=== PATIENT | female | born 1955 | race Caucasian/White ===

== ENCOUNTER 2016-06-13 07:30 | Inpatient (IN) | payer BC ==
[~2016-06-13] VITALS: Ht 162.6 cm; Wt 72.7 kg
[~2016-06-13 07:30] MED LIST: BENICAR HCT 40-1 TAB PO; CELEXA40 MG PO; FLEXERIL10 MG PO; MOBIC7.5 MG PO; NORCO 10/325 TA1 TA1 PO; NORCO 5/325 TAB1 TA1 PO; PROVENTIL HFA6.7 GM INH; RELAFEN750 MG PO; ZANAFLEX4 MG PO
[2016-06-19] MEDS ORDERED: LYRICA75 MG PO (13:56)
[2016-06-19] MEDS ORDERED: ROBAXIN500 MG PO (13:57)
[2016-06-19] MEDS ORDERED: HYDROCODON-ACE1 EAC7 PO (13:58)
[2016-06-19] MEDS ORDERED: OMEGA 3 FISH OI1 CAP PO (14:00)
[2016-06-19] MEDS ORDERED: VITAMIN B-121000 MCG PO (14:00)
[2016-06-19] MEDS ORDERED: FOLATE0.4 MG PO (14:00)
[2016-06-19] MEDS ORDERED: VITAMIN D31000 UNIT PO (14:01)
[2016-06-19 15:00] LABS: BASOPHILS 0.5 % (0-2); EOSINOPHILS 4.3 % (0-7); HEMATOCRIT 42.7 % (36.0-48.0); HEMOGLOBIN 14.3 g/dL (12-16); IMMATURE GRANULOCYTES 0.2 % (0-5); LYMPHOCYTES 32.9 % (15-50); MCH 32.5 pg (26.0-34.0); MCHC 33.5 g/dL (31.0-37.0); MEAN PLATELET VOLUME 10.1 fL (7.4-10.4); MONOCYTES 7.1 % (2-11); PLATELET COUNT 244 10x3/uL (130-400); RDW 12.6 % (11.5-14.5); WBC 5.6 10x3/uL (4.8-10.8)
[2016-06-19 15:09] LABS: APPEARANCE CLEAR (CLEAR); BACTERIA FEW /hpf (NONE SEEN); BILIRUBIN NEGATIVE (NEGATIVE); COLOR YELLOW (YELLOW); EPITHELIAL CELLS OCC /hpf (0-5); GLUCOSE NEGATIVE (NEGATIVE); KETONE NEGATIVE (NEGATIVE); LEUKOCYTE ESTERASE TRACE (NEGATIVE); NITRITE NEGATIVE (NEGATIVE); PROTEIN NEGATIVE (NEGATIVE); RED CELLS - URINE OCC /hpf (0-5); UROBILINOGEN NORMAL (NORMAL); WHITE CELLS - URINE 0-5 /hpf (0-5); YEAST <1+ /hpf (NONE SEEN)
[2016-06-19 15:23] LABS: ANION GAP 10.5 mmol/L (8-16); CARBON DIOXIDE 29.3 mmol/L (21.0-32.0); CREATININE - SERUM 0.9 mg/dL (0.6-1.3); POTASSIUM - SERUM 3.8 mmol/L (3.5-5.1)
[2016-06-19 15:24] LABS: INR 0.92 (0.85-1.17); PROTIME 12.2 SECONDS (11.6-15.0)
[2016-06-20] VITALS (10 sets, daily range): BP systolic 83–116; BP diastolic 44–62; Ht 162.6 cm; Wt 72.7 kg
--- NOTE | 2016-06-20 08:14 | NUR ---
0800: ATTEMPTED TO REACH FAMILY EXT 2500,2525, AND 2506 X2. NO ANSWER. TALKED TO KIT (OP RN) STATED FAMILY WAS IN 2506 AND SHE WOULD NOTIFIY FAMILY. -ECOSTER
--- NOTE | 2016-06-20 11:21 | HP ---
PATIENT: NATALIE STOUT MEDICAL RECORD: [id number] ACCOUNT: [id number] LOCATION:[facility].[place]- : 59 ADMISSION DATE: 06/20/16 HISTORY AND PHYSICAL EXAMINATION H&P for Dr. Wilfredo Mireles SURGERY: 4:00 a.m. CHIEF COMPLAINT: Back pain. HISTORY OF PRESENT ILLNESS: This is a pleasant, small-framed white female, who presented to our office with complaints of back pain. She has a grade L4-L5, grade II spondylolisthesis and she has been scheduled for surgery earlier, but had to cancel due to insurance issues. She now presents to the office with ongoing back pain, radicular into both lower extremities. The pain is rated 5 to 9 out of 10, intermittent. She has had it for 10-12 years. Pain is in the lumbar L5 distribution, burning, aching type pain and it is better when she rests and sits down, it is worse with walking and activity. She does have some difficulty initiating urination and that has been ongoing for the past 4 months. She has had physical therapy. She has not had any lumbar epidural steroid injections. She is not on any blood thinners and she is a half a pack smoker per day. PAST MEDICAL HISTORY: Significant for vitamin B deficiency, hyperlipidemia, chronic pain, neuropathy, hypertension, sinusitis, low back pain, fibromyositis, shortness of breath and cough. PAST SURGICAL HISTORY: Condyloma. CURRENT MEDICATIONS: Citalopram, hydrocodone, Lyrica, methocarbamol, inhaler, tizanidine. ALLERGIES: LEVAQUIN AND PENICILLIN. REVIEW OF SYSTEMS: She denies any recent chest pain, shortness of breath or weight changes. PHYSICAL EXAMINATION: HEENT: Normocephalic. Pupils are equal and reactive to light. CHEST: Clear bilaterally to auscultation. HEART: S1 and S2. ABDOMEN: Soft, bowel sounds present. EXTREMITIES: Dorsiflexion and plantar flexion are intact. Her deep tendon reflexes are normal. IMPRESSION: Grade II L4-L5 spondylolisthesis. PLAN: L3-5 versus L3-S1TLIF. The risk and benefits of surgery have been explained to her in detail. Risks include bleeding, failure to relieve symptoms, problems with anesthesia and . Time was allowed for questions, questions were answered. The patient wishes to proceed with surgery. TRANSINT:[id number] Voice Confirmation ID: [id number] DOCUMENT ID: [id number] HISTORY AND PHYSICAL [id number] NATALIE STOUT Dictated By: KELSIE VILLEDA I have interviewed/examined the above patient and agree with these documented findings. WILFREDO MIRELES MD at 1121 at 1040 CC: [id number] DICTATION DATE: 06/19/16 1335 THEOLOGY PROFESSOR: 06/19/16 1425 ADM IN [facility] [address] [id number]
--- NOTE | 2016-06-20 12:25 | NUR ---
RECEIVED TO ROOM 2227 FROM PACU VIA BED. PT IS AWAKE AND ALERT. VITAL SIGNS INITIATED PER POST PROCEDURE PROTOCOL. IV TO LEFT FOREARM PATENT WITH NO S/S OF INFILTRATION PRESENT. CAGE CATHETER PATENT AND DRAINING TO GRAVITY. DRESSING TO LOWER BACK C/D/I. 120 ML OF BLOODY DRAINAGE EMPTIED FROM GT DRAIN TO PT'S LOWER BACK. FAMILY AT BEDSIDE. ORIENTED PT TO ROOM AND CALL LIGHT. DENIES NEEDS AT PRESENT TIME. WILL CONTINUE WITH PLAN OF CARE.
--- NOTE | 2016-06-20 12:44 | NUR ---
PRN NORCO-10 2 TABLETS ADMINISTERED PER ORDER FOR PAIN 4/10 INCISIONALLY. MEDICATION TAKEN WITHOUT DIFFICULTY. PT DENIES NEEDS AT THIS TIME. CALL LIGHT IN REACH, SRX2 WITH BED IN LOWEST POSITION AND WHEELS LOCKED. WILL CONTINUE WITH PLAN OF CARE.
[2016-06-20 14:46] LABS: ANION GAP 8.6 mmol/L (8-16); CALCIUM 8.3 mg/dL (8.5-10.1); CARBON DIOXIDE 30.3 mmol/L (21.0-32.0); POTASSIUM - SERUM 3.9 mmol/L (3.5-5.1)
--- NOTE | 2016-06-20 16:30 | NUR ---
SPOKE WITH DR WANG AT THIS TIME REGARDING PT'S BLOOD PRESSURE. ORDERS GIVEN FOR A STAT CBC AND 500 ML FLUID BOLUS. INSTRUCTION GIVEN TO CALL HIM BACK ONCE BOLUS WAS FINISHED AND BLOOD COUNT RESULTS WERE BACK. WILL CONTINUE WITH PLAN OF CARE.
[2016-06-20 16:43] LABS: BASOPHILS 0.1 % (0-2); EOSINOPHILS 0 % (0-7); HEMATOCRIT 39.4 % (36.0-48.0); HEMOGLOBIN 12.7 g/dL (12-16); IMMATURE GRANULOCYTES 0.2 % (0-5); MCH 31.8 pg (26.0-34.0); MCHC 32.2 g/dL (31.0-37.0); MCV 98.5 fL (80.0-100.0); MEAN PLATELET VOLUME 10.3 fL (7.4-10.4); MONOCYTES 1.9 % (2-11); NEUTROPHILS 93.8 % (40-80); PLATELET COUNT 228 10x3/uL (130-400); RDW 12.5 % (11.5-14.5)
--- NOTE | 2016-06-20 16:48 | NUR ---
500 ML FLUID BOLUS INITIATED AT THIS TIME PER ORDER FROM DR WANG. IV TO LEFT FOREARM PATENT. BEGINNING BLOOD PRESSURE 89/58 AND PULSE RATE 84.
[2016-06-20 17:13] LABS: WBC 8.8 10x3/uL (4.8-10.8)
--- NOTE | 2016-06-20 17:20 | NUR ---
BOLUS COMPLETE AT THIS TIME. BLOOD PRESSURE 95/54 AND PULSE 83.
--- NOTE | 2016-06-20 17:30 | NUR ---
SPOKE WITH DR WANG AT THIS TIME. NO FURTHER ORDERS GIVEN AT THIS TIME.
--- NOTE | 2016-06-20 17:44 | NUR ---
PRN NORCO-10 2 TABLETS ADMINISTERED AT THIS TIME. ASSISTED PT UP TO CHAIR WITH STANDBY ASSIST. DENIES FURTHER NEEDS. CALL LIGHT IN REACH, WILL CONTINUE WITH PLAN OF CARE.
--- NOTE | 2016-06-20 20:15 | NUR ---
BROUGHT PATIENT COFFEE PER HER REQUEST. PATIENT DENIES OTHER NEEDS AT THIS TIME. BED IN LOWEST POSITION AND CALL LIGHT WITHIN REACH. ENCOURAGED THE PATIENT TO CALL IF SHE HAS FURTHER NEEDS.
[2016-06-21] VITALS: BP 93/52
[2016-06-21 04:00] VITALS: BP 95/50
[2016-06-21 05:33] LABS: BASOPHILS 0.2 % (0-2); EOSINOPHILS 0.1 % (0-7); HEMATOCRIT 34.3 % (36.0-48.0); HEMOGLOBIN 11.1 g/dL (12-16); IMMATURE GRANULOCYTES 0.3 % (0-5); LYMPHOCYTES 9.5 % (15-50); MCH 32.1 pg (26.0-34.0); MCHC 32.4 g/dL (31.0-37.0); MCV 99.1 fL (80.0-100.0); MEAN PLATELET VOLUME 9.9 fL (7.4-10.4); MONOCYTES 7.1 % (2-11); NEUTROPHILS 82.8 % (40-80); PLATELET COUNT 246 10x3/uL (130-400); RBC 3.46 10x6/uL (4.00-5.40); RDW 12.9 % (11.5-14.5)
[2016-06-21 05:40] LABS: ANION GAP 6.1 mmol/L (8-16); CALCIUM 8.1 mg/dL (8.5-10.1); CARBON DIOXIDE 32.3 mmol/L (21.0-32.0); CREATININE - SERUM 0.9 mg/dL (0.6-1.3); POTASSIUM - SERUM 4.4 mmol/L (3.5-5.1)
--- NOTE | 2016-06-21 07:40 | NUR ---
PATIENT RECEIVED SITTING UP IN CHAIR AT BEDSIDE. NO SIGNS OF DISTRESS NOTED. CALL LIGHT IN REACH. DENIES NEEDS.
[2016-06-21 07:58] VITALS: BP 84/43
--- NOTE | 2016-06-21 09:05 | NUR ---
PATIENT SITTING UP IN CHAIR ALERT. NO SIGNS OF DISTRESS NOTED. RATES PAIN 5/10. SCHEDULED MEDICATION ADMINISTERED WELL PRN NORCO. TRANSFERRED SELF TO BED. AVERY CARE PROVIDED. CAGE CATH D/C PER ORDER. 600 CC URINE REMAINED IN COLLECTION BAG. WELL TOLERATED. WILL CONTINUE TO MONITOR OUTPUT. CALL LIGHT IN REACH.
--- NOTE | 2016-06-21 11:00 | NUR ---
PATIENT ALERT IN LOW PENA POSITION RESTING QUIETLY. RESPIRATIONS EVEN AND UNLABORED. DENIES NEEDS. SIDE RAILS UP X2. BED IN LOW POSITION. CALL LIGHT IN REACH.
[2016-06-21 12:34] VITALS: BP 93/45
--- NOTE | 2016-06-21 12:50 | NUR ---
PATIENT UP AMBULATING IN HALLWAY WITHOUT ASSIST. WELL TOLERATED. NO SIGNS OF DISTRESS NOTED. WILL CONTINUE TO MONITOR.
--- NOTE | 2016-06-21 14:05 | NUR ---
C/O PAIN 08/27. 2 TAB NORCO PER PRN ORDER. NO FURTHER NEED VOICED. SIDE RAILS UP X2. BED IN LOW POSITION. CALL LIGHT IN REACH.
[2016-06-21 16:03] VITALS: BP 88/39
[2016-06-21 20:00] VITALS: BP 98/59
--- NOTE | 2016-06-21 20:58 | NUR ---
PATIENT UP IN CHAIR WITH C/O 8/10 PAIN. ADMINISTERED PAIN MEDICATION WITH OTHER NIGHT MEDS. ALSO BROUGHT PATIENT WATER PER HER REQUEST. PATIENT DENIES OTHER NEEDS AT THIS TIME. BED IN LOWEST POSITION AND CALL LIGHT WITHIN REACH. ENCOURAGED THE PATIENT TO CALL IF SHE HAS OTHER NEEDS.
[2016-06-22] VITALS: BP 90/51
[2016-06-22 04:00] VITALS: BP 96/55
[2016-06-22 06:32] LABS: BASOPHILS 0.3 % (0-2); EOSINOPHILS 1.2 % (0-7); HEMATOCRIT 32.5 % (36.0-48.0); HEMOGLOBIN 10.5 g/dL (12-16); IMMATURE GRANULOCYTES 0.1 % (0-5); LYMPHOCYTES 21.3 % (15-50); MCH 31.9 pg (26.0-34.0); MCHC 32.3 g/dL (31.0-37.0); MCV 98.8 fL (80.0-100.0); MEAN PLATELET VOLUME 9.8 fL (7.4-10.4); MONOCYTES 8.4 % (2-11); NEUTROPHILS 68.7 % (40-80); RBC 3.29 10x6/uL (4.00-5.40); RDW 12.8 % (11.5-14.5); WBC 9.1 10x3/uL (4.8-10.8)
[2016-06-22 06:50] LABS: PLATELET COUNT 193 10x3/uL (130-400)
[2016-06-22 06:58] LABS: CALC OSMOLALITY 276 mosm/kg (275-300); CALCIUM 8.5 mg/dL (8.5-10.1); CARBON DIOXIDE 30.3 mmol/L (21.0-32.0); CHLORIDE - SERUM 103 mmol/L (98-107); CREATININE - SERUM 0.8 mg/dL (0.6-1.3); GLUCOSE 89 mg/dL (74-106); POTASSIUM - SERUM 3.8 mmol/L (3.5-5.1); SODIUM 139 mmol/L (136-145); UREA NITROGEN 12 mg/dL (7-18); eGFR NON AFRICAN AMERICAN 78 mL/min (90-120)
--- NOTE | 2016-06-22 07:30 | NUR ---
PT ASSESSMENT COMPLETE AWAKE AND ALERT ORINETED X 3 LUNGS CLAER BILATERAL HAS GT DRAIN PATENT TO SEROSANGUANOUS DRAIAGE. DRESSING INTACT TO BACK INCISION TO LUMBAR SPINE WITH WOUND EDGES WELL APPROXIMATED. AMBULATES INDEPENDANTLY WITH STEADY GAIT.
[2016-06-22] MEDS ORDERED: ROBAXIN-750750 MG PO (07:43)
[2016-06-22] MEDS ORDERED: HYDROCODONE-APA1 TAB PO (07:44)
[2016-06-22] MEDS ORDERED: COLACE100 MG PO (07:45)
[2016-06-22] MEDS ORDERED: VALIUM5 MG PO (07:46)
--- NOTE | 2016-06-22 07:48 | OP ---
PATIENT NAME: NATALIE BURGER MEDICAL RECORD: [id number] :59 LOCATION:[id number] ADMISSION DATE:06/20/16 SURGEON: NED WANG MD DATE OF OPERATION: 06/20/2016 PREOPERATIVE DIAGNOSES: Grade II spondylolisthesis at L4-L5. POSTOPERATIVE DIAGNOSES: Grade II spondylolisthesis at L4-L5. PROCEDURES PERFORMED: 1. Application of intervertebral biomechanical device from a posterior interbody approach at L4-L5. 2. Posterior interbody arthrodesis with endplate preparation with ring curettes and endplate rasp. 3. Posterior segmental screw fixation in the form of bilateral cortical screws at L4 and L5. 4. Posterolateral arthrodesis on the left side at the left L4-L5 facet joint and pars junction. 5. Wide L4 laminectomy with bilateral L4 and L5 foraminotomies and partial L5 laminotomy. 6. L4-L5 discectomy. IMPLANTS: 1. NuVasive MAS PLIF cage 12 mm x 23-mm by 8 degree lordosis. 2. 5.5-mm x40-mm screws at L4 and L5 bilaterally. 3. 45-mm rods bilaterally. COMPLICATIONS: None apparent. FINDINGS: No durotomy; the left L5 screw produced an EMG response at 5 milliamps however, no significant breach detail on direct visualization or on the 3D fluoroscopy spin. ESTIMATED BLOOD LOSS: 250 mL. SPECIMENS: None. COMPLICATIONS: None apparent. HISTORY OF PRESENT ILLNESS: Natalie Burger is a pleasant 61-year-old female who presented as an outpatient with severe and progressive lower back pain with bilateral L5 radicular symptoms and ultimately some difficulty with her bladder function. Imaging was consistent with a grade I spondylolisthesis in the supine position which progressed to grade II on standing and axial loading. I had an extensive discussion regarding her presentation, imaging findings and risks, benefits and options for continued conservative therapy versus operative intervention in form of posterior lumbar interbody fixation at L4-L5. She ultimately chose to undergo the operative intervention and all the risks and benefits were discussed with her in detail preoperatively and she agreed. PROCEDURE: Mrs. Burger was identified by anesthesia team and transported to operative theater. General endotracheal anesthesia commenced and all appropriate lines and tubes were placed. She was gently transferred over in a prone position on the operative bed with chest was placed on chest bolsters and her arms. Pressure points were padded and arms were placed in superman position OPERATIVE REPORT [id number] ARGELIANATALIE E and eyes were accounted for by anesthesia team. The lumbar region was prepped and draped in usual sterile fashion. Using AP and lateral fluoroscopy, an incision overlying the L4-L5 posterior elements was marked. After a timeout was performed and agreed to by those present, the patient did receive 10mg IV dexamethasone, as well as a gram of vancomycin, 1% lidocaine with epinephrine was infiltrated in the planned incision. A 10 blade was used to make a skin incision and a combination of Bovie electrocautery and blunt dissection was used to expose the relevant posterior element anatomy at L4-L5. Self-retaining retractors were placed, which were intermittently released throughout the procedure for muscle relaxation. The entry points for the L4 and L5 cortical screws were identified under AP and ultimately lateral fluoroscopy. The [employer] holes were drilled to the [employer] drill and then the battery-operated drill with a drill guide set to 35 mm, was used under lateral fluoroscopy to finalize the tracts in a cortical screw trajectory. The pedicle sounding probe was used to palpate for breaches which there were none in any of the 4 tracts. The tracts were then further developed with a 5 mm tap with the EMG continuous monitoring clip attached. During the tapping portion screw placement, the EMG responses did not occur at below 19 milliamps except for the left L5 screw, which occurred at 5 milliamps. The screws were ultimately placed without difficulty. After screw placement, a 3D fluoroscopic spin was taken and the screws were evaluated and no appreciable or significant medial breach was identified on the scan. Using combination of Leksell rongeurs, pituitary rongeurs, Kerrison rongeurs and osteotomes, the L4 laminotomy and right L4 medial facetectomy was performed exposing the underlying thecal sac. The decompression on the right side was extended to provide access from the L4 to L5 pedicles. The superior L5 laminotomy was performed along with bilateral L5 foraminotomies in addition to bilateral L4 foraminotomies. The screws were visually inspected for any significant medial breach specially the left L5 screw. Although screw thread was partially evident at the most anterior portion of the spinal canal, this was right at the vertebral body was being entered and did not appear to be causing any risk to the left L5 nerve root. The L4-L5 disc space were identified and the overlying epidural plexus was coagulated with bipolar electrocautery. Using a 15 blade, a square cut was made in the disc, all the thecal sac was retracted. Using combination of pituitary rongeurs and initially mylene, the discectomy was carried out. Ultimately, a 12 shaver was found to be appropriate for the size of the cage and a 12-trial was seated into the disc space and found to be appropriate on the fluoroscopic imaging. The discectomy was extensively completed and the endplates were prepared for arthrodesis with a ring curette and the endplate rasp. The autograft from the bony decompression was stripped freed of soft tissue and morcellized in the bone mill and then packed into the bone funnel. A bone funnel was then inserted at L4-L5, this placed under lateral fluoroscopy. Autograft was delivered into the disc space. The bone was then packed into the NuVasive MAS PLIF cage and the cage was inserted at L4-L5 to the appropriate depth on the lateral fluoroscopy. Final AP and lateral x-rays showed appropriate position of the implants. Copious amount of irrigation was used in the operative field. The left L4-L5 facet and pars junction was decorticated with a matchstick drill and autograft was delivered into the space posterior lateral arthrodesis and ultimately fusion. A small amount of Surgiflo hemostatic matrix was used to control small amount of epidural hemorrhage. There is no significant hemorrhage at the time of closure. The screw heads were seated into position and confirmed to be locked down tight and 45 mm rods were placed on each side. Set screws were delivered and final tightened without difficulty. A 10-Upper Sorbian round drain was tunneled away from the incision and laid into the subfascial space. A half a gram of vancomycin powder was sprinkled into the subfascial space and the fascia OPERATIVE REPORT [id number] NATALIE BURGER E was closed with interrupted 0 Vicryl sutures in a watertight fashion. The rest of vancomycin powder (0.5 grams) was sprinkled in the suprafascial space and the subdermal region was reapproximated with inverted interrupted 2-0 Vicryl sutures. The skin was closed with a running subcuticular 4-0 Monocryl. The drain was sutured into place. A wet and dry dressing was used in cleaning incision and Dermabond Prineo dressing was placed. Sponge and needle counts were correct times 2 at the end of the case. There were no apparent complications. There was no durotomy. I updated the family immediately postoperatively regarding the course of procedure and answered their questions. TRANSINT:[id number] Voice Confirmation ID: [id number] DOCUMENT ID: [id number] NED WANG MD at 0748 CC: [id number] DICTATION DATE: 06/20/16 1145 MAINTENANCE TEAM LEADER: 06/20/[address] [facility] [address] [place] [address]
[2016-06-22 07:50] VITALS: BP 100/53
--- NOTE | 2016-06-22 10:21 | NUR ---
PT DISCHARGED AT THIS TIME GT DRAIN DISCONTINUED PER ORDER DR WANG. PT TOLERATED WELL D/C PIV PT EXPRESSED UNDERSTANDING OF ALL DISCHARGE INSTRUCTIONS.
== END 2016-06-22 10:55 | disposition home or self-care (01) | DRG 460 ==
LOC: D.MS 06-20 05:30 → D.SDCHOLD 06-20 05:30 → D.MS 06-20 11:47
PROVIDERS: ADMIT Neurological Surgery
PROC: 0ST20ZZ Resection of Lumbar Vertebral Disc, Open Approach (ICD-10-PCS; 2016-06-20)
PROC: 0SG00A1 (ICD-10-PCS; principal; 2016-06-20 07:30)
DX: M43.16 Spondylolisthesis, lumbar region (principal); E78.5 Hyperlipidemia, unspecified; I10 Essential (primary) hypertension; G89.29 Other chronic pain

== ENCOUNTER → 2016-07-20 07:43 | Outpatient (CLI) | payer BC ==
[2016-06-20 12:29] VITALS: BMI 27.5
[~2016-07-20 07:43] MED LIST changes: +COLACE100 MG PO; +FOLATE0.4 MG PO; +HYDROCODON-ACE1 EAC7 PO; +HYDROCODONE-APA1 TAB PO; +LYRICA75 MG PO; +OMEGA 3 FISH OI1 CAP PO; +ROBAXIN-750750 MG PO; +ROBAXIN500 MG PO; +VALIUM5 MG PO; +VITAMIN B-121000 MCG PO; +VITAMIN D31000 UNIT PO
== END | disposition home or self-care (01) ==
LOC: D.RAD 07:43
DX: M43.26 Fusion of spine, lumbar region (principal)

== ENCOUNTER → 2016-08-27 12:00 | Outpatient (CLI) | payer BC ==
[2016-06-20 12:29] VITALS: BMI 27.5
== END | disposition home or self-care (01) ==
LOC: D.MAMMO 11:30 → D.US 12:00 → D.MAMMO 12:00 → D.US 13:30
DX: M79.669 Pain in unspecified lower leg (principal)

== ENCOUNTER → 2016-08-27 14:14 | Outpatient (CLI) | payer BC ==
[2016-06-20 12:29] VITALS: BMI 27.5
== END | disposition home or self-care (01) ==
LOC: D.MAMMO 11:30 → D.US 11:30 → D.MAMMO 14:14
DX: Z12.31 Encounter for screening mammogram for malignant neoplasm of breast (principal)

== ENCOUNTER → 2016-09-21 07:48 | Outpatient (CLI) | payer BC ==
[2016-06-20 12:29] VITALS: BMI 27.5
== END ==
LOC: D.RAD 07:48
DX: Z48.811 Encounter for surgical aftercare following surgery on the nervous system (principal)

== ENCOUNTER 2017-07-10 09:45 | Outpatient (CLI) | payer BC ==
[2016-06-20 12:29] VITALS: BMI 27.5
--- NOTE | ~2017-07-10 | OP ---
PATIENT NAME: NATALIE STOUT MEDICAL RECORD: [id number] :59 LOCATION:[facility] ADMISSION DATE: SURGEON: ERMIAS SUERO MD DATE OF OPERATION: 07/10/2017 PROCEDURES: 1. Left heart catheterization. 2. Selective coronary angiography. 3. Left ventriculogram. INDICATION: Chest pain of unknown etiology. PROCEDURE IN DETAIL: After informed consent was obtained and after a detailed description of risks, benefits as well as alternative therapies, the patient elected to proceed with angiogram and heart catheterization. The right femoral area was prepped and draped in normal sterile fashion. Right femoral artery was cannulated via modified Seldinger technique with placement of 6-Divehi sheath. All catheters exchanged through this sheath. FINDINGS: Left ventriculogram was performed in standard 30-degree MADERA view, reveals good cardiac wall motion throughout all segments. Overall ejection fraction estimated 60%. SELECTIVE CORONARY ANGIOGRAPHY: Left main, left anterior descending, left circumflex, right coronary are all smooth-walled vessels. No angiographic evidence of coronary artery disease. OVERALL IMPRESSION: 1. No angiographic evidence of coronary artery disease. 2. Normal left heart pressures. 3. Normal left ventricular systolic function. Chest pain is noncardiac in etiology. No further cardiac workup needs to be ascertained. TRANSINT:[id number] Voice Confirmation ID: [id number] DOCUMENT ID: [id number] ERMIAS SUERO MD at 1218 CC: [id number] DICTATION DATE: 07/10/17 1254 DIRECTOR STARS: 07/10/17 1320 DEP CLI 07/10/17 [address] [address] [id number] [place] [id number]
--- NOTE | ~2017-07-10 | HEMODYNAMI ---
PATIENT:NATALIE STOUT MEDICAL RECORD: [id number] : 59 [facility] AD[facility] DATE: 07/10/17 Generatedon:07/10/201712:53 Patient name: NATALIE STOUT Patient #: [id number] SSN: : 1955 Date of study: 07/10/2017 Page: Of Hemodynamic Procedure Report Patient Data Patient Demographics Procedure consent was obtained First Name: NATALIE Gender: Female Last Name: ARGELIA : 1955 Middle Initial: E Age: 62 year(s) Patient #: [id number] Race: Unknown Additional ID: [id number] Contact details [address]: [address] [place] [address] State: [place] City: [place] Zip code: [address] Past Medical History Allergies Allergen Reaction Date Comments Reported Other allergy 07/10/2017 YAN HYDE Admission Admission Data Admission Date: 07/10/2017 Admission Time: 9:45 Lab Results Lab Result Date: 07/10/2017 Lab Result Time: 0:00 Biochemistry Name Units Result Min Max BUN mg/dl 19 --(----)*- 7 18 Creatinine mg/dl 0.9 --(-*--)-- 0.6 1.3 CBC Name Units Result Min Max Hemoglobin g/dl 13.8 --(*---)-- 13.5 17.5 Procedure Procedure Types Cath Procedure Diagnostic Procedure [facility] w/Coron[facility] Procedure Description Procedure Date Procedure Date: 07/10/2017 Procedure Start Time: 12:44 Procedure End Time: 12:52 Procedure Staff Name Function Jarad Colorado MD Performing Physician Leonor Peck RT Monitor Barrera Mena RT Scrub Eddie Lin RN Nurse Procedure Data Cath Procedure Fluoroscopy Diagnostic fluoroscopy Total fluoroscopy Time: 0.7 time: 0.7 min min Diagnostic fluoroscopy Total fluoroscopy dose: 355 dose: 355 mGy mGy Contrast Material Contrast Material Type Amount (ml) Isovue 370 56 Entry Location Entry Primary Successful Side Size Upsize Upsize Entry Closure Succes sful Closure Location (Fr) 1 (Fr) 2 (Fr) Remarks Device Remarks Femoral Right 5 Fr Exoseal artery Estimated blood loss: 5 ml Diagnostic catheters Device Type Used For End Catheter Placement MULTIPACK Pigtail 5 Fr Procedure catheter MULTIPACK JL 4.0 5Fr Procedure catheter MULTIPACK 3DRC 5Fr Procedure catheter Procedure Complications No complications Procedure Medications Medication Administration Route Dosage 0.9% NaCl I.V. 100 ml/hr Oxygen etCO2 Nasal cannula 2 l/min Heparin Flush Bag added to field 2 bags (1000units/500ml NS) Lidocaine 2% added to field 20 Versed I.V. 2 mg Fentanyl I.V. 100 mcg Versed I.V. 2 mg Fentanyl I.V. 100 mcg Hemodynamics Rest HGB: 13.8 (g/dl) Heart Rate: 61 (bpm) Snapshots Pre Cath Intra NCS Post Cath Vital Signs Time Heart Resp SPO2 etCO2 NIBP (mmHg) Rhythm Pain Sedation Rate (ipm) (%) (mmHg) Status Level (bpm) 12:26:07 62 14 100 34.6 130/85(110) NSR 0 (11) 10(A) , No pain 12:30:49 59 14 99 40.6 124/74(95) NSR 0 (11) 10(A) , No pain 12:35:30 62 15 96 42.1 110/71(94) NSR 0 (11) 10(A) , No pain 12:40:08 64 19 95 42.1 119/64(87) NSR 0 (11) 10(A) , No pain 12:44:49 67 18 96 45.1 118/72(87) NSR 0 (11) 9(A) , No pain 12:49:29 73 18 97 48.9 120/67(99) NSR 0 (11) 9(A) , No pain Medications Time Medication Route Dose Verified Delivered Reason Notes Eff ectiveness by by 12:27:19 0.9% NaCl I.V. 100 Eddie Eddie Per ml/hr Delia Lin physician RN RN 12:27:29 Oxygen etCO2 2 Eddie Eddie Per Nasal l/min Delia Lin physician cannula RN RN 12:27:41 Heparin Flush added 2 Eddie Eddie used for Bag to bags Lorigan Lorigan procedure (1000units/500ml field RN RN NS) 12:27:53 Lidocaine 2% added 20ml Eddie Eddie for local to vial Lorigan Lorigan anesthetic field RN RN 12:43:08 Versed I.V. 2 mg Eddie Eddie for Lorigan Lorigan sedation RN RN 12:43:16 Fentanyl I.V. 100 Eddie Eddie for mcg Lorigan Lorigan sedation RN RN 12:46:09 Versed I.V. 2 mg Eddie Eddie for Lorigan Lorigan sedation RN RN 12:46:14 Fentanyl I.V. 100 Eddie Eddie for mcg Lorigan Lorigan sedation RN soccer player Log Time Note 11:44:28 Signed procedure consent form obtained from patient. 11:44:30 Time tracking: Regular hours (M-F 7:00 - 5:00) 11:44:36 Plan of Care:Hemodynamics will remain stable., Cardiac rhythm will remain stable., Comfort level will be maintained., Respiratory function will remain adequate., Patient/ family verbilizes understanding of procedure., Procedure tolerated without complication., Recovers from procedure without complications.. 11:46:57 Lab Result : BUN 19 mg/dl 11:46:57 Lab Result : Creatinine 0.9 mg/dl 11:46:57 Lab Result : Hemoglobin 13.8 g/dl 11:56:19 Leonor Peck RT(R) sent for patient. Start room use. 12:12:44 Patient received from ED to CCL 1 Alert and oriented. Tansferred to table in Supine position. 12:12:45 Warm blankets applied, and aiden hugger turned on for patient comfort. 12:12:46 Correct patient and procedure confirmed by team. 12:12:47 ECG and BP/O2 sat monitors applied to patient. 12:12:50 Pre-procedure instructions explained to patient. 12:12:50 Pre-op teaching completed and patient verbalized understanding. 12:12:56 H&P Date Dictated: 07/10/2017 New H&P dictated by physician.. 12:25:13 Vital chart was started 12:25:16 Baseline sample Acquired. 12:25:20 Rhythm: sinus rhythm 12:25:22 Full Disclosure recording started 12:26:07 Patient allergic to Other allergyPCN, LEVAQUIN 12:26:10 Is patient on blood thinner?Yes 12:26:12 ACC The patient was administered the following blood thiners within the last 24 hours: ACCPlavix 12:26:21 PRELOADED 12:26:23 Patient diabetic? No. 12:26:34 Previous problem with sedation/anesthesia? No ? 12:26:36 Snore? No 12:26:39 Sleep apnea? No 12:26:40 Deviated septum? No 12:26:47 Opens mouth fully? Yes 12:26:48 Sticks out tongue? Yes 12:26:55 Airway obstruction? No ? 12:26:57 Dentures? No ? 12:27:00 Pre procedure: right dorsailis pedis pulse 2+ Normal; easily identifiable; not easily obliterated 12:27:03 Patient pain scale 0/10 ?. 12:27:08 IV patent on arrival in left forearm with 0.9% NaCl at [facility]. 12:27:11 Lab results completed and on chart. 12:27:14 Right groin area was prepped with chlora-prep and draped in sterile fashion 12:27:15 Alarms reviewed by R. N. 12:27:16 Sharps counted by scrub and verified by R.N. 12:27:19 0.9% NaCl 100 ml/hr I.V. was administered by Eddie Lin RN; Per physician; 12::29 Oxygen 2 l/min etCO2 Nasal cannula was administered by Eddie Lin RN; Per physician; 12:27:41 Heparin Flush Bag (1000units/500ml NS) 2 bags added to field was administered by Eddie Lin RN; used for procedure; 12::53 Lidocaine 2% 20ml vial added to field was administered by dEdie Lin RN; for local anesthetic; 12:29:15 Use device set Femoral Dx 12:29:17 ACIST Syringe (61069) opened to sterile field. 12:29:18 Bag Decanter (2001S) opened to sterile field. 12:29:19 ACIST Hand Control (47673) opened to sterile field. 12:29:19 ACIST Manifold (19582) opened to sterile field. 12:29:20 Tegaderm 4 x 4 (1626W) opened to sterile field. 12:29:22 Medline Cath Pack ([id number]) opened to sterile field. 12:29:22 DIAGNOSTIC WIRE .035 260cm J wire (374432) opened to sterile field. 12:29:23 DIAGNOSTIC Multipack 5Fr catheter set (ZY0754) opened to sterile field. 12:29:26 SHEATH Prelude 5Fr 0.035 (MBR-6P-53-035) opened to sterile field. 12::43 Zero performed for pressure channel P1 12:42:13 --------ALL STOP TIME OUT------ 12:42:13 Final Timeout: patient, procedure, and site verified with staff and physician. All members of the team are in agreement. 12:42:15 Right groin site verified by team. 12:42:19 Physical assessment completed. ASA score P 2 - A patient with mild systemic disease as per Jarad Colorado MD. ::22 Sedation plan: IV Moderate Sedation Medication:Versed, Fentanyl 12:43:08 Versed 2 mg I.V. was administered by Eddie Lin RN; for sedation; 12:43:16 Fentanyl 100 mcg I.V. was administered by Eddie Lin RN; for sedation; 12:43:46 Procedure started. 12:44:00 Local anesthetic to right femoral artery with Lidocaine 2% by Jarad Colorado MD.INITIAL ACCESS ONLY 12:44:34 A 5 Fr sheath was inserted into the Right Femoral artery 12:44:45 A MULTIPACK Pigtail 5 Fr catheter was advanced over the wire and used for Procedure. 12:45:29 Injector settings: Ml/sec: 10, Volume: 20, 12:45:40 LV gram done using MADERA 12:45:57 EF : 60 % 12:45:58 Catheter removed. 12:46:09 Versed 2 mg I.V. was administered by Eddie Lin RN; for sedation; 12:46:14 Fentanyl 100 mcg I.V. was administered by Eddie Lin RN; for sedation; 12:46:19 A MULTIPACK JL 4.0 5Fr catheter was advanced over the wire and used for Procedure. 12:47:55 Catheter removed. 12:48:00 A MULTIPACK 3DRC 5Fr catheter was advanced over the wire and used for Procedure. 12:48:44 RCA angiography performed. 12:48:46 Catheter removed. 12:48:53 EXOSEAL 5Fr (EX500) opened to sterile field. 12:49:19 Sheath removed intact; hemostasis achieved with Exoseal to the Right Femoral artery. 12:49:33 Procedure ended.(Physican Out) 12:50:26 Fluoroscopy time 00.70 minutes. 12:50:29 Fluoroscopy dose: 355 mGy 12:50:29 Flurop Dose total: 355 12:50:33 Contrast amount:Isovue 370 56ml. 12:50:34 Sharps counted by scrub and verified by R.N. 12:50:38 Post-op/insertion site Right Femoral artery dressed using a 4 x 4 and Tegaderm. 12:50:41 Post right femoral artery:stable, soft, clean and dry 12:50:45 Post procedure: right dorsailis pedis pulse 2+ Normal; easily identifiable; not easily obliterated. 12:50:48 Post-procedure physical assessment completed. ASA score P 2 - A patient with mild systemic disease as per Jarad Colorado MD. 12:50:52 Post procedure rhythm: unchanged. 12:50:54 Estimated blood loss: 5 ml 12:50:56 Post procedure instruction explained to patient.Patient verbalizes understanding. 12:50:57 Patient needs reinforcement of post procedure teaching. 12:51:58 Procedure and supply charges have been captured, reviewed, submitted and are correct. 12:52:00 Procedure Complication : No complications 12:52:02 Vital chart was stopped 12:52:03 See physician's report for complete and final results. 12:52:05 Report given to Pre/Post Procedure Room. 12:52:08 Patient transfered to Pre/Post Procedure Room with Bed. 12:52:10 Procedure ended. 12:52:10 Full Disclosure recording stopped 12:52:12 End room use (Document Last) Device Usage Item Name Manufacture Quantity Catalog Number Hospital Part Current M inimal Lot# / Charge Number Stock Stock Serial# Code ACIST Syringe Acist 1 41420 403651 019747 269739 2 0 (76253) [employer] Bag Decanter Microtek 1 391839 16581 184644 5 () Medical Inc. ACIST Hand Acist 1 37548 839475 212406 609583 5 Control (28298) [employer] Inc ACIST Manifold Acist 1 94737 039310 575623 703573 5 (92505) [employer] Inc Tegaderm 4 x 4 3M 1 1626W 974090 958365 862824 5 (1626W) Medline Cath Cardinal 1 [id number] 974054 17539 522403 5 Pack Health ([id number]) DIAGNOSTIC WIRE St Nirav 1 232550 646680 042656 815435 3 0 .035 260cm J wire (110391) DIAGNOSTIC Cardinal 1 HS0885 078868 82689 553496 3 0 Multipack 5Fr Health catheter set ([id number]) SHEATH Prelude Merit 1 JZX-3H-00-035 409209 982445 866794 5 5Fr 0.035 Medical ([id number]-5M-47-035) MULTIPACK Cardinal 1 168628 5 Pigtail 5 Fr Health catheter MULTIPACK JL Cardinal 1 185613 5 4.0 5Fr Health catheter MULTIPACK 3DRC Cardinal 1 [id number] 5 5Fr catheter Health EXOSEAL 5Fr Cardinal 1 EX500 652007 182072 816961 1 0 (EX500) Health Signature Audit Guion Stage Time Signature Unsigned Intra-Procedure 07/10/2017 Leonor Peck 12:53:18 PM RT(R) Signatures Monitor : Leonor Peck Signature : RT Date : Time : [address] [address]
--- NOTE | ~2017-07-10 | CN ---
PATIENT NAME:NATALIE STOUT MEDICAL RECORD: [id number] : 59 LOCATION:[facility] ADMIT DATE: ACCOUNT: [id number] CONSULTING PHYSICIAN: ERMIAS SUERO MD REFERRING PHYSICIAN: AGAPITO OCHOA MD DATE OF CONSULTATION: 07/10/2017 CARDIOLOGY CONSULTATION DIAGNOSES: 1. Chest pain compatible with angina. 2. Hypertension. 3. Hyperlipidemia. 4. Family history of coronary artery disease. 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 She continues to have chest pain, very typical for an anginal discomfort. She has a strong family history of coronary artery disease, hypertension, hyperlipidemia. Her EKG is with no acute changes. PHYSICAL EXAMINATION: GENERAL APPEARANCE: Well-nourished, well-developed, appears stated age. Level of distress, comfortable. PSYCHIATRIC: Mental status, alert, normal affect. Orientation, oriented to time, place and person. EYES: Lids and conjunctiva, noninjected. No discharge, no pallor. ENT: Lips, teeth, gums, normal dentition. Oropharynx, no cyanosis, no pallor. NECK: Carotid arteries, bilateral normal upstroke, no bruits, no thrills. JUGULAR VEINS: No jugular venous pressure or distention. CERVICAL LYMPH NODES: Nontender, nonenlarged. THYROID: Not enlarged. Nontender. No nodules. LUNGS: Respiratory effort, unlabored. CHEST: Normal curvature. No thoracic deformity. No chest wall tenderness. Percussion, resonant. Auscultation, clear. No wheezes, no rales, no rhonchi. CARDIOVASCULAR: Precordial exam, nondisplaced. No heaves or pericardial thrills. Rate and rhythm, regular. Heart sounds, normal S1, normal S2. No S3, no gallop, no rub. Systolic murmur, not heard. Diastolic murmur, not heard. EXTREMITIES: No cyanosis, no edema. Peripheral pulses, full and equal in all extremities, except as noted. No bruits appreciated. ABDOMEN: Soft, nondistended. Normal aorta. No bruit. Nontender. No masses. Liver, nontender, no hepatomegaly. Spleen, nontender, no splenomegaly. MUSCULOSKELETAL: No joint tenderness. No joint swelling. No erythema. NEUROLOGICAL: Normal gait, normal strength, normal tone. SKIN: Warm and dry. OVERALL IMPRESSION: Chest pain, very compatible with angina. Continues to have the chest pain. We will proceed with coronary angiography. Further care depends upon findings of the angiography. TRANSINT:[id number] Voice Confirmation ID: [id number] DOCUMENT ID: [id number] CONSULT REPORT [id number] NATALIE STOUT, ERMIAS DEMPSEY at 1218 CC: [id number] DICTATION DATE: 07/10/17 1141 SALES AND EVENTS COORDINATOR: 07/10/17 1340 DEP CLI 07/10/17 [facility] [address] [place] [address]
[2017-07-10 10:05] LABS: BASOPHILS 0.2 % (0-2); EOSINOPHILS 1.7 % (0-7); HEMATOCRIT 41.5 % (36.0-48.0); HEMOGLOBIN 13.8 g/dL (12-16); IMMATURE GRANULOCYTES 0.4 % (0-5); LYMPHOCYTES 22.1 % (15-50); MCH 32.1 pg (26.0-34.0); MCHC 33.3 g/dL (31.0-37.0); MCV 96.5 fL (80.0-100.0); MEAN PLATELET VOLUME 9.5 fL (7.4-10.4); NEUTROPHILS 68.6 % (40-80); RDW 13.8 % (11.5-14.5); WBC 9.2 10x3/uL (4.8-10.8)
[2017-07-10 10:21] LABS: PLATELET COUNT 246 10x3/uL (130-400)
[2017-07-10 10:22] LABS: ALBUMIN 3.4 g/dL (3.4-5.0); ALKALINE PHOSPHATASE 79 U/L (46-116); ALT (SGPT) 19 U/L (10-68); BILIRUBIN - TOTAL 0.35 mg/dL (0.2-1.3); CALC OSMOLALITY 277 mosm/kg (275-300); CALCIUM 8.9 mg/dL (8.5-10.1); CARBON DIOXIDE 28.2 mmol/L (21.0-32.0); CHLORIDE - SERUM 104 mmol/L (98-107); CREATININE - SERUM 0.9 mg/dL (0.6-1.3); GLUCOSE 96 mg/dL (74-106); PROTEIN - SERUM 6.7 g/dL (6.4-8.2); SODIUM 138 mmol/L (136-145); UREA NITROGEN 19 mg/dL (7-18); eGFR NON AFRICAN AMERICAN 68 mL/min (90-120)
[2017-07-10 10:43] LABS: CHOL - HDL RATIO 2.9 ratio (2.3-4.1); CHOLESTEROL, TOTAL 199 mg/dL (0-200); CKMB 0.9 U/L (0.0-3.6); CREATINE KINASE 129 UL (21-215); HDL CHOLESTEROL 68 mg/dL (32-96); LDL CHOLESTEROL 97 mg/dL (0-100); LDL-HDL RATIO 1.4 ratio (1.5-3.5); LIPASE 247 U/L (73-393); PRO BNP 198 pg/mL (0-125); TRIGLYCERIDE 174 mg/dL (30-200)
[2017-07-10 10:49] LABS: TROPONIN-I < 0.017 ng/mL (0.000-0.060)
== END 2017-07-10 15:00 | disposition home or self-care (01) ==
LOC: D.CATH 09:45 → D.ER 09:45 → EDSTATUS 12:30 → D.CATH 15:00
PROVIDERS: Family Medicine
DX: R07.89 Other chest pain (principal); Z01.812 Encounter for preprocedural laboratory examination

== ENCOUNTER → 2017-08-15 06:39 | Outpatient (CLI) | payer BC ==
[2016-06-20 12:29] VITALS: BMI 27.5
== END | disposition home or self-care (01) ==
LOC: D.MRI 06:39
DX: M54.5 Low back pain (principal)

== ENCOUNTER → 2017-09-11 18:22 | Outpatient (CLI) | payer BC ==
[2016-06-20 12:29] VITALS: BMI 27.5
== END | disposition home or self-care (01) ==
LOC: D.MAMMO 11:00
DX: Z12.31 Encounter for screening mammogram for malignant neoplasm of breast (principal)

== ENCOUNTER → 2017-09-12 10:32 | Outpatient (CLI) | payer BC ==
[2016-06-20 12:29] VITALS: BMI 27.5
== END | disposition home or self-care (01) ==
LOC: D.MRI 10:32
DX: R53.1 Weakness (principal)

== ENCOUNTER → 2017-09-13 08:53 | Outpatient (CLI) | payer BC ==
[2016-06-20 12:29] VITALS: BMI 27.5
== END | disposition home or self-care (01) ==
LOC: D.CT 08-28 11:00
DX: R05 Cough (principal); Z00.00 Encounter for general adult medical examination without abnormal findings

== ENCOUNTER → 2017-10-23 07:14 | Outpatient (CLI) | payer BC ==
[2016-06-20 12:29] VITALS: BMI 27.5
== END | disposition home or self-care (01) ==
LOC: D.MRI 07:00
DX: G45.9 Transient cerebral ischemic attack, unspecified (principal); M54.2 Cervicalgia; R20.2 Paresthesia of skin

== ENCOUNTER 2017-12-12 06:00 | Day surgery (SDC) | payer BC ==
[2017-12-11 09:11] LABS: HEMATOCRIT 46.3 % (36.0-48.0); HEMOGLOBIN 15.8 g/dL (12-16); MCH 32.8 pg (26.0-34.0); MCHC 34.1 g/dL (31.0-37.0); MCV 96.1 fL (80.0-100.0); MEAN PLATELET VOLUME 9.3 fL (7.4-10.4); RBC 4.82 10x6/uL (4.00-5.40); RDW 12.8 % (11.5-14.5); WBC 7.7 10x3/uL (4.8-10.8)
[2017-12-11 09:29] LABS: CALCIUM 9.2 mg/dL (8.5-10.1); CARBON DIOXIDE 29.8 mmol/L (21.0-32.0); POTASSIUM - SERUM 3.8 mmol/L (3.5-5.1)
[2017-12-12] VITALS (18 sets, daily range): BP systolic 93–147; BP diastolic 47–84; Ht 264.2 cm; Wt 75.4 kg
[~2017-12-12] VITALS: Ht 264.2 cm; Wt 75.4 kg
--- NOTE | ~2017-12-12 | OP ---
PATIENT NAME: NATALIE STOUT MEDICAL RECORD: [id number] :59 LOCATION:[facility] ADMISSION DATE:12/12/17 SURGEON: WILMAR MAC MD DATE OF OPERATION: 12/12/2017 PREOPERATIVE DIAGNOSES: 1. Disc herniation and osteophyte formation at C5-C6 and C6-C7 with left C6 and C7 radiculopathy. 2. Left ulnar neuropathy. POSTOPERATIVE DIAGNOSES: 1. Disc herniation and osteophyte formation at C5-C6 and C6-C7 with left C6 and C7 radiculopathy. 2. Left ulnar neuropathy. SURGEON: Wilmar Mac MD PROCEDURE: 1. Anterior cervical discectomy and fusion at C5-C6 and C6-C7 with [employer] anterior cervical plate and screws. A separate PEEK interbody cages at C5-C6 and C6-C7, bone stem cell allograft, removal of osteophytes. 2. Left ulnar nerve release. DESCRIPTION OF TECHNIQUE FOR ACS: After sterile prep and drape, the patient was positioned supine on the operating table. The neck was prepped and draped in usual sterile fashion. Fluoroscopic x-ray and freer localized the C6 vertebral body. A transverse skin incision was carried out from the midline to the sternocleidomastoid muscle. The platysma was divided with Bovie cautery. Using blunt and sharp dissection with Metzenbaum scissors, I proceeded in avascular plane medial to the carotid sheath. The longus colli muscles were elevated from bodies of C5, C6 and C7. Osteophytes were removed anteriorly with Adson rongeurs. A self-retaining retractor was placed deep to the longus colli muscles. [place] distracting pins were placed in the bodies of C5, C6, and C7. Each disc space was incised with #11 blade. The disc material was removed with pituitary rongeurs and curettes. Osteophytes were drilled away posteriorly at each level under microscopic illumination. Following this, the C6 and C7 nerve roots were decompressed on both sides. The posterior longitudinal ligament was removed. A PEEK interbody cage was placed into each disc space under distraction. Prior to this, it was filled with bone stem cells. Next, a separate anterior cervical plate and screws was used to span the C5-C6 and C6-C7 interspaces, 16-mm screws were placed through the holes in the plate. The locking cams were tightened down over the screw heads. Meticulous hemostasis was maintained throughout the wound. The wound was irrigated with copious amounts of Ancef irrigant solution. Locking cams were tightened down over the screw heads. The platysma was closed with interrupted 3-0 Vicryl suture, the subdermal layer was closed with interrupted 3-0 Vicryl suture. Steri-Strips and benzoin were used to reapproximate the wound edges. Next, attention was turned to the left ulnar nerve. The left upper extremity was prepped and draped in usual sterile fashion, was exsanguinated with an David wrap. Following this, a curvilinear incision was curved just medial to the olecranon using a sharp dissection with a 15 blade. The cubital tunnel was identified and sharp dissection took place from the scarred tissue just proximal to the cubital tunnel. Using a #15 blade, the nerve was sharply dissected away from scar tissue. Separate vessel loop was used to elevate the nerve that was transposed across the medial olecranon. Subfascial sling was created with 3-0 Vicryl OPERATIVE REPORT [id number] NATALIE STOUT suture. Subdermal layer was closed with interrupted 3-0 Vicryl suture. The skin was closed with a running 3-0 Monocryl suture. Sterile dressing was applied to the wound. The patient was awakened in good condition and taken to recovery. All counts were reported as correct. Estimated blood loss was minimal. TRANSINT:[id number] Voice Confirmation ID: [id number] DOCUMENT ID: [id number] WILMAR MAC MD at 1351 CC: [id number] DICTATION DATE: 12/12/17 1148 COMMERCIAL ASSISTANT: 12/12/17 1216 ADM IN [place] [id number] [place] [address]
[~2017-12-12 06:00] MED LIST changes: +ELAVIL75 MG PO; +MELATONIN10 M1 PO; +SUPER B COMPLE150 MG PO
[2017-12-13] VITALS (14 sets, daily range): BP systolic 111–132; BP diastolic 39–67
== END 2017-12-13 14:49 | disposition home or self-care (01) | DRG 473 ==
LOC: D.OPS 06:00 → D.PAN 07:30 → D.OPS 07:30 → D.CVICU 12:09 → D.OPS 12:10 → D.CVICU 12:11 → D.OPS 12-13 14:49
PROVIDERS: Anesthesiology; Neurological Surgery
PROC: 0RB30ZZ Excision of Cervical Vertebral Disc, Open Approach (ICD-10-PCS; principal; 2017-12-12 07:30)
PROC: 0RG20A0 Fusion of 2 or more Cervical Vertebral Joints with Interbody Fusion Device, Anterior Approach, Anterior Column, Open Approach (ICD-10-PCS; 2017-12-12 07:30)
DX: M50.122 Cervical disc disorder at C5-C6 level with radiculopathy (principal); G56.22 Lesion of ulnar nerve, left upper limb; M25.78 Osteophyte, vertebrae; Z01.812 Encounter for preprocedural laboratory examination

== ENCOUNTER → 2018-09-01 07:06 | Outpatient (CLI) | payer BC ==
[2017-12-12 13:06] VITALS: BMI 10.8
[2018-09-01 07:42] LABS: BASOPHILS 0.5 % (0-2); EOSINOPHILS 4.1 % (0-7); IMMATURE GRANULOCYTES 0.2 % (0-5); LYMPHOCYTES 35.2 % (15-50); MCH 32.5 pg (26.0-34.0); MCHC 34.8 g/dL (31.0-37.0); MCV 93.3 fL (80.0-100.0); MEAN PLATELET VOLUME 9.9 fL (7.4-10.4); MONOCYTES 6.9 % (2-11); NEUTROPHILS 53.1 % (40-80); PLATELET COUNT 239 10x3/uL (130-400); RBC 4.93 10x6/uL (4.00-5.40); RDW 13.1 % (11.5-14.5); WBC 5.7 10x3/uL (4.8-10.8)
[2018-09-01 08:34] LABS: CHOL - HDL RATIO 3.7 ratio (2.3-4.1); LDL-HDL RATIO 2.1 ratio (1.5-3.5); THYROID STIMULATING HORMONE 1.44 uIU/mL (0.36-3.74)
== END | disposition home or self-care (01) ==
LOC: D.LAB 07:06
PROVIDERS: ATTEND Family Medicine
DX: E78.5 Hyperlipidemia, unspecified (principal); I10 Essential (primary) hypertension; R73.01 Impaired fasting glucose

== ENCOUNTER 2018-09-30 14:30 | Outpatient (CLI) | payer BC ==
[2017-12-12 13:06] VITALS: BMI 10.8
== END 2018-09-30 15:00 | disposition home or self-care (01) ==
LOC: D.MAMMO 14:30
PROVIDERS: ATTEND Family Medicine
DX: Z12.31 Encounter for screening mammogram for malignant neoplasm of breast (principal)